=== PATIENT | male | born 1985 | race Caucasian/White ===

== ENCOUNTER 2017-06-18 01:42 | Emergency (ER) | payer OTHER ==
[2017-06-18] MEDS ORDERED: SODIUM BICARB 8.4% 50 ML SYR (1 MEQ/ML) ONE (01:46)
[2017-06-18] MEDS ORDERED: EPINEPHrine 10 ML SYRINGE (0.1 MG/ML) ONE (01:46)
--- NOTE | 2017-06-18 02:28 | ED ---
CPR HPI - General Stated Complaint: overdose Time Seen by Provider: 06/18/17 01:43 Source: EMS Mode of arrival: EMS Limitations: altered mental status - History of Present Illness Initial Comments: This patient is a 32-year-old man wrought to the emergency department by EMS. The patient is unresponsive and not able to give history. History is from the EMS personnel and police. I did obtain further history from the patient's sister later. It is reported that the patient was at the sister's home or he has been staying for about a week now. She was notified by a friend of the patient that he was not responsive. She went to see him and had to force the door open as he was in the bathroom on the floor and against the door. When she was able to open the door and got and he was not responsive. She phoned 911 and first responders came. First responders found the patient appearing agonal and given the reported history of substance abuse Narcan was administered. It was reported after this that the patient may have had a seizure and vomited following Narcan administration. By EMS arrival the patient did not have any vital signs. A Reggie tube was placed, an IV was started , the patient had chest compressions, and was given 4 mg of epinephrine. MD Complaint: found unresponsive Place: home Bystander CPR Performed: Yes AED Applied by Bystander/Mica Paster: Yes Shock Advised: No Initial Findings in the Field: unresponsive, PEA ROSC in the Field: No Associated Injuries: No Treatments Prior to Arrival: intubation (Reggie tube), BMV, chest compressions, epinephrine mgs # (4) Review of Systems ROS Statement: Those systems with pertinent positive or pertinent negative responses have been documented in the HPI. ROS Other: All systems not noted in ROS Statement are negative. Limitations: ROS unobtainable due to patients medical condition General Exam General appearance: other (Unresponsive) Head exam: Present: atraumatic, normocephalic Eye exam: Present: conjunctival injection (There is some conjunctival drying). Absent: PERRL (Pupils unreactive) Pupils: Present: mydriatic ENT exam: Present: other (There is a Reggie tube with small amount of what appears to be coffee-ground emesis in the pharynx.) Neck exam: Present: other (No evident trauma or bony step-off) Respiratory exam: Present: rhonchi (There are rhonchi with bagging), other ( Without bagging, there is no inspiratory effort. There are no breath sounds.) Cardiovascular Exam: Present: other (No detectable PMI. No detectable pulses. No cardiac sounds) GI/Abdominal exam: Present: soft. Absent: distended, tenderness Extremities exam: Present: normal inspection. Absent: normal capillary refill Back exam: Present: normal inspection Neurological exam: Present: other (The patient is GCS 3. No neurologic signs of life. No cranial nerve or deep tendon reflexes.) Skin exam: Present: dry, cyanosis. Absent: normal color, rash, petechiae Medical Decision Making - Medical Decision Making This patient is a 32-year-old man brought by EMS after a suspected overdose. Additional history from the patient's sister revealed that someone had admitted to using methamphetamine. In addition, patient had been behaving in a bizarre fashion throughout the day prior to this episode. The patient had taken all of the furniture out of the house and was cleaning with bleach. He had taken a bath in bleach. Given the patient's young age, CPR, with ACLS was continued for 30 minutes with no response to medications in the emergency department. On arrival he patient was in asystole, though there were occasional complexes on the monitor, the rate was less than 10 bpm. He was given multiple rounds of epinephrine and also an amp of bicarb. There was no change on the monitor after multiple rounds , and the patient was pronounced at it to 216 a.m. Disposition Clinical Impression: Cardiopulmonary arrest Disposition: Referrals: None,Stated [Primary Care Provider] - 1-2 days Preliminary Cause of : [id number]
[2017-06-18 10:59] LABS: Glucose,Whole Blood 387 mg/dL (75-99)
== END 2017-06-18 05:54 | disposition expired ==
LOC: EC 01:42
DX: I46.9 Cardiac arrest, cause unspecified (principal)
CPT/HCPCS: 36415; 92950; 99285